=== PATIENT | male | born 1955 | race Caucasian/White ===

== ENCOUNTER 2018-07-18 17:41 | Emergency (ER) | payer MEDICARE ==
--- NOTE | 2018-07-18 17:49 | EDM.PDOC ---
ED HPI GENERAL MEDICAL PROBLEM - General Chief Complaint: General Stated Complaint: LIGHT HEADED Time Seen by Provider: 07/18/18 17:47 Source of Information: Reports: Patient History Limitations: Reports: Other (poor historian) - History of Present Illness INITIAL COMMENTS - FREE TEXT/NARRATIVE: HISTORY AND PHYSICAL: History of present illness: Patient is a 63-year-old male who presents to the clinic today with concerns of wanting his blood pressure medications refilled until his appointment on July [address] Garcia at [facility]. Patient states that he decided he needed his medications (as he has been out for 5 or 6 days) and is now experiencing lightheadedness, shortness of breath, cough, and had an episode where he "blacked out" yesterday. Patient states he was in the kitchen when he suddenly felt lightheaded and woke up on the floor. He states he is not sure how long he was unconscious but that he awoke to the dog was licking his face. Patient states he's never had an episode like this before. He recently moved back to [place] from [place] to be with this children is why he is waiting to get into the clinic at [facility]. Patient does state he was recently hospitalized in [place] on for "swelling of my legs" as well as "cough". Patient states he is not sure of any diagnosis he received while in the hospital. Patient does not live an active lifestyle and states that he does not walk around much. Patient states his only health history is as high blood pressure and he is not aware of any cardiovascular or respiratory concerns. Patient does smoke about half a pack a day for many years. Patient denies fever, chills, chest pain, palpitations, diaphoresis, pain that radiates down the arm, pain with inspiration, nausea, vomiting, diarrhea, constipation, or or any GI or symptoms. Review of systems: As per history of present illness and below otherwise all systems reviewed and negative. Past medical history: As per history of present illness and as reviewed below otherwise noncontributory. Surgical history: As per history of present illness and as reviewed below otherwise noncontributory. Social history: See social history for further information Family history: As per history of present illness and as reviewed below otherwise noncontributory. Physical exam: Exam is limited due to body habitus General: Patient is alert, oriented, and in no acute distress. He is sitting comfortably on exam table. HEENT: Atraumatic, normocephalic, pupils equal and reactive bilaterally, negative for conjunctival pallor or scleral icterus, mucous membranes dry, TMs normal bilaterally, throat clear, neck supple, nontender, trachea midline. No drooling or trismus noted. No meningeal signs. No hot potato voice noted. Lungs: Diffuse wheezing heard bilaterally, breath sounds equal bilaterally but greatly diminished , chest nontender. Heart: S1S2, regular rate and rhythm without overt murmur Abdomen: Morbid obesity but otherwise soft, nondistended, nontender. Negative for masses or hepatosplenomegaly. Negative for costovertebral tenderness. Pelvis: Stable nontender. Genitourinary: Deferred. Rectal: Deferred. Skin: Intact, warm, dry. No lesions or rashes noted. Extremities: the skin on patient's legs are taught with 1+ pitting edema. Otherwise, atraumatic, negative for cords or calf pain. Neurovascular unremarkable. Neuro: Awake, alert, oriented. Cranial nerves II through XII unremarkable. Cerebellum unremarkable. Motor and sensory unremarkable throughout. Exam nonfocal. Notes: Patient continues to have multiple vague complaints the more we talked about his diagnostic workup. After nursing staff established an IV and was preparing to administer medication he states that he has already taken aspirin prior to arrival and declines. He states he does have some chest pain and is requesting soda as he states that he "needs to burp". We did allow him to drink some Sprite at the bedside which she was able to relieve pressure and states that he no longer has chest pain. He declines the nitroglycerin sublingual that was offered and as his pain is now a 0 out of 10. He does state he has anxiety and is anxious about being here in the emergency room. Patient requested to speak with the provider, stating he would like to leave and "just have my medications refilled". Initially we had discussed possible admission due to his multiple complaints, at this time he is declining. He is requesting that whatever tests have not been completed to be canceled at this time. He states his significant other did make him a follow-up appointment with Dr. Garcia at [facility]. We discussed possible risks of being discharged without a all our testing results being returned and not being able to complete some of the tests that have yet been performed. He is aware of these risks and accepts responsibility in still like to be discharged. He is requesting that his medications be refilled until he can see Dr. Garcia. I will give him a 2 week supply until he is able to make this appointment. I encouraged him to return to the emergency room if his symptoms return, worsen or new symptoms develop. He is signing out AGAINST MEDICAL ADVICE with routine instructions. Diagnostics: CBC, CMP, EKG, Chest Xray, Troponin, BNP, Head CT, Orthostatic Vitals Therapeutics: Solu-Medrol, Duo Neb, ASA 81 X 4 Prescription: Lasix and metoprolol tartrate Impression: History of hypertension Encounter for medical screening Syncope Dyspnea Leaving AGAINST MEDICAL ADVICE Plan: 1. Continue with your home medications. 2. You can alternate Tylenol or ibuprofen as needed for pain or discomfort. 3. Follow-up with Dr. Garcia at [facility] as scheduled. 4. Return to the ED as needed and as discussed. Definitive disposition and diagnosis as appropriate pending reevaluation and review of above. Duration: Chronic - Related Data Allergies Allergy/AdvReac Type Severity Reaction Status Date / Time Penicillins Allergy Delusions Verified 07/18/18 17:47 Home Meds: Home Meds Albuterol [Proventil Neb Soln] 0.63 mg .XX ASDIRECTED PRN 07/18/18 [History] Furosemide [Lasix] 20 mg PO DAILY #15 tab 07/18/18 [Rx] Furosemide [Lasix] 40 mg PO DAILY 07/18/18 [History] Metoprolol Tartrate 25 mg PO BID 07/18/18 [History] Metoprolol Tartrate 25 mg PO BID 15 Days #30 tablet 07/18/18 [Rx] ED ROS GENERAL - Review of Systems Review Of Systems: ROS reveals no pertinent complaints other than HPI. ED EXAM, GENERAL - Physical Exam Exam: See Below (see dictation) Course - Vital Signs Last Recorded V/S: Last Vital Signs Temp 96.5 F 07/18/18 17:48 Pulse 110 H 07/18/18 17:48 Resp 26 H 07/18/18 17:48 BP 160/86 H 07/18/18 17:48 Pulse Ox 97 07/18/18 17:48 Orthostatic Blood Pressure [ 139/76 Standing] Orthostatic Blood Pressure [ 105/56 Sitting] Orthostatic Blood Pressure [ 112/68 Supine] - Orders/Labs/Meds Labs: Laboratory Tests 07/18/18 07/18/18 07/18/18 Range/Units 18:25 18:25 18:25 WBC 7.77 (4.0-11.0) K/uL RBC 4.40 L (4.50-5.90) M/uL Hgb 10.7 L (13.0-17.0) g/dL Hct 33.9 L (38.0-50.0) % MCV 77.0 L (80.0-98.0) fL MCH 24.3 L (27.0-32.0) pg MCHC 31.6 (31.0-37.0) g/dL RDW Std Deviation 45.0 (28.0-62.0) fl RDW Coeff of Diego 16 H (11.0-15.0) % Plt Count 332 (150-400) K/uL MPV 8.30 (7.40-12.00) fL Neut % (Auto) 67.5 (48.0-80.0) % Lymph % (Auto) 17.0 (16.0-40.0) % Boyle % (Auto) 10.8 (0.0-15.0) % Eos % (Auto) 4.4 (0.0-7.0) % Baso % (Auto) 0.3 (0.0-1.5) % Neut # (Auto) 5.3 (1.4-5.7) K/uL Lymph # (Auto) 1.3 (0.6-2.4) K/uL Boyle # (Auto) 0.8 (0.0-0.8) K/uL Eos # (Auto) 0.3 (0.0-0.7) K/uL Baso # (Auto) 0.0 (0.0-0.1) K/uL Nucleated RBC % 0.0 /100WBC Nucleated RBCs # 0 K/uL Sodium 132 L (136-148) mmol/L Potassium 5.5 H (3.5-5.1) mmol/L Chloride 97 L (98-107) mmol/L Carbon Dioxide 25.4 (21.0-32.0) mmol/L BUN 16 (7.0-18.0) mg/dL Creatinine 1.3 (0.8-1.3) mg/dL Est Cr Clr Drug Dosing 64.67 mL/min Estimated GFR (MDRD) 55.9 ml/min Glucose 108 H (74-106) mg/dL Calcium 9.2 (8.5-10.1) mg/dL Total Bilirubin 0.3 (0.2-1.0) mg/dL AST 24 (15-37) IU/L ALT 24 (14-63) IU/L Alkaline Phosphatase 61 (46-116) U/L Troponin I < 0.050 (0.000-0.056) ng/mL B-Natriuretic Peptide 15 (<100) PG/ML Total Protein 8.1 (6.4-8.2) g/dL Albumin 3.3 L (3.4-5.0) g/dL Globulin 4.8 H (2.6-4.0) g/dL Albumin/Globulin Ratio 0.7 L (0.9-1.6) Meds: Medications Discontinued Medications Generic Name Dose Route Start Last Admin Trade Name Freq PRN Reason Stop Dose Admin Albuterol/Ipratropium 3 ml 07/18/18 18:05 07/18/18 18:16 Duoneb 3.0-0.5 Mg/3 Ml NEB 07/18/18 18:06 3 ml ONETIME ONE Administration Aspirin 324 mg 07/18/18 18:23 07/18/18 18:38 Aspirin PO 07/18/18 18:24 Not Given ONETIME ONE Methylprednisolone Sodium Succinate 125 mg 07/18/18 18:05 07/18/18 18:32 Solu-Medrol IVPUSH 07/18/18 18:06 125 mg ONETIME ONE Administration Nitroglycerin 0.4 mg 07/18/18 18:32 Nitrostat SL Q5M PRN Chest Pain Sodium Chloride 10 ml 07/18/18 18:04 07/18/18 18:32 Saline Flush FLUSH 10 ml ASDIRECTED PRN Administration Keep Vein Open Sodium Chloride 2.5 ml 07/18/18 18:04 07/18/18 18:31 Saline Flush FLUSH 2.5 ml ASDIRECTED PRN Administration Keep Vein Open Departure - Departure Time of Disposition: 19:06 Disposition: Home, Self-Care 01 Clinical Impression: Medication refill, Eloped from emergency department, History of hypertension Dyspnea Qualifiers: Dyspnea type: unspecified Qualified Code(s): R06.00 - Dyspnea, unspecified - Discharge Information Prescriptions: Furosemide [Lasix] 20 mg PO DAILY #15 tab Metoprolol Tartrate 25 mg PO BID 15 Days #30 tablet Referrals: PCP,None [Primary Care Provider] - Forms: ED Department Discharge Additional Instructions: The following information is given to patients seen in the emergency department who are being discharged to home. This information is to outline your options for follow-up care. We provide all patients seen in our emergency department with a follow-up referral. The need for follow-up, as well as the timing and circumstances, are variable depending upon the specifics of your emergency department visit. If you don't have a primary care physician on staff, we will provide you with a referral. We always advise you to contact your personal physician following an emergency department visit to inform them of the circumstance of the visit and for follow-up with them and/or the need for any referrals to a consulting specialist. The emergency department will also refer you to a specialist when appropriate. This referral assures that you have the opportunity for follow-up care with a specialist. All of these measure are taken in an effort to provide you with optimal care, which includes your follow-up. Under all circumstances we always encourage you to contact your private physician who remains a resource for coordinating your care. When calling for follow-up care, please make the office aware that this follow-up is from your recent emergency room visit. If for any reason you are refused follow-up, please contact the [facility] Emergency Department at and asked to speak to the emergency department charge nurse. [facility] [address] [place] [address] [id number] [address] [address] 1. Continue with your home medications. 2. You can alternate Tylenol or ibuprofen as needed for pain or discomfort. 3. Follow-up with Dr. Garcia at [facility] as scheduled. 4. Return to the ED as needed and as discussed.
[2018-07-18] MEDS ORDERED: Sodium Chloride 0.9% 10 ML Syringe FLUSH PRN (18:04)
[2018-07-18] MEDS ORDERED: Sodium Chloride 0.9% 2.5 ML Syringe FLUSH PRN (18:04)
[2018-07-18] MEDS ORDERED: methylPREDNISolone Sodium Succinate 125 MG/2 ML SDV IVPUSH ONE (18:05)
[2018-07-18] MEDS ORDERED: Albuterol/Ipratropium 3.0-0.5 MG/3 ML Neb Soln NEB ONE (18:05)
[2018-07-18] MEDS ORDERED: Aspirin 81 MG Tab.Chew PO ONE (18:23)
[2018-07-18] MEDS ORDERED: Nitroglycerin 0.4 MG Tab.SL SL PRN (18:32)
[2018-07-18 19:07] LABS: CHLORIDE,CL 97 mmol/L (98-107); SODIUM,NA 132 mmol/L (136-148)
== END 2018-07-18 19:17 | disposition home or self-care (01) ==
LOC: MW.ED 17:41
DX: R55 Syncope and collapse (principal); R06.02 Shortness of breath; I10 Essential (primary) hypertension; E66.01 Morbid (severe) obesity due to excess calories; F17.210 Nicotine dependence, cigarettes, uncomplicated; Z88.0 Allergy status to penicillin; Z79.899 Other long term (current) drug therapy
CPT/HCPCS: 36415; 80053; 83880; 84484; 85025; 93005; 96374; 99285; J2930; J7620-GY

== ENCOUNTER 2018-08-03 13:43 | Emergency (ER) | payer MEDICARE ==
[2018-08-03] MEDS ORDERED: Albuterol/Ipratropium 3.0-0.5 MG/3 ML Neb Soln NEB ONE (14:14)
[2018-08-03] MEDS ORDERED: methylPREDNISolone Sodium Succinate 125 MG/2 ML SDV IM ONE (14:14)
--- NOTE | 2018-08-03 14:17 | EDM.PDOC ---
ED HPI GENERAL MEDICAL PROBLEM - General Chief Complaint: General Stated Complaint: FLU Time Seen by Provider: 08/03/18 14:07 Source of Information: Reports: Patient History Limitations: Reports: No Limitations - History of Present Illness INITIAL COMMENTS - FREE TEXT/NARRATIVE: HISTORY AND PHYSICAL: History of present illness: Patient is a 63-year-old male who presents to the emergency room with complaints of cough and generally feeling unwell. He states he was seen by his primary care provider, Dr. Rc Garcia approximately a week and a half ago and was diagnosed with pneumonia. He states he is placed on an antibiotic once daily for 7 days. Once the antibiotic was completed he states he started to feel unwell again. He continues to have a cough, fatigue and sore throat. Patient reports he has a past medical history of hypertension and anxiety. He denies any fever, chills, chest pain, abdominal pain, nausea, vomiting, diarrhea or constipation. He states his appetite has decreased due to the pain in his throat but is able to continue taking and warmed fluids. Review of systems: As per history of present illness and below otherwise all systems reviewed and negative. Past medical history: As per history of present illness and as reviewed below otherwise noncontributory. Surgical history: As per history of present illness and as reviewed below otherwise noncontributory. Social history: See social history for further information Family history: As per history of present illness and as reviewed below otherwise noncontributory. Physical exam: General: Well-developed and well-nourished 63-year-old male. Alert and oriented. Nontoxic appearing and in no acute distress. HEENT: Atraumatic, normocephalic, pupils equal and reactive bilaterally, negative for conjunctival pallor or scleral icterus, mucous membranes moist, TMs normal bilaterally, throat clear, neck supple, nontender, trachea midline. No drooling or trismus noted. No meningeal signs. No hot potato voice noted. Lungs: Expiratory wheezing throughout, diminished, dry cough noted, chest nontender. Heart: S1S2, regular rate and rhythm without overt murmur Abdomen: Soft, nondistended, obese, nontender. Negative for masses or hepatosplenomegaly. Negative for costovertebral tenderness. Pelvis: Stable nontender. Genitourinary: Deferred. Rectal: Deferred. Skin: Intact, warm, dry. No lesions or rashes noted. Extremities: Atraumatic, moves all per self, negative for cords or calf pain. Neurovascular unremarkable. Neuro: Awake, alert, oriented. Cranial nerves II through XII unremarkable. Cerebellum unremarkable. Motor and sensory unremarkable throughout. Exam nonfocal. Notes: Chest x-ray shows no acute findings. Influenza and strep screening are negative. Patient does have a slight decrease in hemoglobin. Discussed this findings as well as the rest of lab/imaging results with patient. He states he has known anemia and was encouraged to follow up with a research program intern in [place] but was noncompliant. He denies any blood in his stools. Discussed the need to follow up with his primary care provider or general surgeon for further evaluation. We did discuss outpatient supportive care measures. He states he does have an inhaler but does not take it as directed because it "tasted bad". I encouraged him to take this as directed, this should also help with his coughing. Reassessed vitals and patient's pulse to come down 106. He is anxious appearing and bouncing his knees up and down. He does express feeling anxiety and has a history of this. Supportive care measures were reviewed and discussed. Voices understanding and is agreeable to plan of care. Denies any further questions or concerns at this time. Diagnostics: CBC, CMP, troponin, EKG, 2 view chest, strep screening, influenza Therapeutics: Solu-Medrol, DuoNeb Prescription: Medrol Dosepak Impression: Anemia Cough Plan: 1. Take Tylenol and ibuprofen as directed and as discussed for pain and discomfort. Take medication as prescribed. 2. Follow-up with your primary care provider as discussed. 3. Return to the ED as needed as discussed. Definitive disposition and diagnosis as appropriate pending reevaluation and review of above. Throat Pain Score (Numeric/FACES): 10 - Related Data Allergies Allergy/AdvReac Type Severity Reaction Status Date / Time Penicillins Allergy Delusions Verified 08/03/18 14:10 Home Meds: Home Meds Losartan [Cozaar] 50 mg PO DAILY 08/03/18 [History] Past Medical History HEENT History: Reports: None Cardiovascular History: Reports: Hypertension Respiratory History: Reports: None Gastrointestinal History: Reports: None Genitourinary History: Reports: None Musculoskeletal History: Reports: None Neurological History: Reports: None Psychiatric History: Reports: Anxiety Endocrine/Metabolic History: Reports: None Dermatologic History: Reports: None - Infectious Disease History Infectious Disease History: Reports: None - Past Surgical History HEENT Surgical History: Reports: None Social & Family History - Family History Family Medical History: Noncontributory - Tobacco Use Smoking Status *Q: Current Every Day Smoker Years of Tobacco use: 30 Packs/Tins Daily: 1 - Caffeine Use Caffeine Use: Reports: Coffee - Recreational Drug Use Recreational Drug Use: No ED ROS GENERAL - Review of Systems Review Of Systems: ROS reveals no pertinent complaints other than HPI. ED EXAM, GENERAL - Physical Exam Exam: See Below (See dictation) Course - Vital Signs Last Recorded V/S: Last Vital Signs Temp 96.6 F 08/03/18 14:11 Pulse 120 H 08/03/18 14:11 Resp 16 08/03/18 14:11 BP 124/72 08/03/18 14:11 Pulse Ox 94 L 08/03/18 14:15 - Orders/Labs/Meds Orders: Active Orders 24 hr Category Date Time Status EKG Documentation Completion [RC] STAT Care 08/03/18 14:14 Active RT Aerosol Therapy [RC] ASDIRECTED Care 08/03/18 14:15 Active CULTURE STREP A CONFIRMATION [] Stat Lab 08/03/18 14:29 Results STREP SCRN A RAPID W CULT CONF [] Stat Lab 08/03/18 14:29 Results Labs: Laboratory Tests 08/03/18 08/03/18 Range/Units 14:28 14:28 WBC 9.79 (4.0-11.0) K/uL RBC 4.14 L (4.50-5.90) M/uL Hgb 9.9 L (13.0-17.0) g/dL Hct 31.2 L (38.0-50.0) % MCV 75.4 L (80.0-98.0) fL MCH 23.9 L (27.0-32.0) pg MCHC 31.7 (31.0-37.0) g/dL RDW Std Deviation 44.7 (28.0-62.0) fl RDW Coeff of Diego 16 H (11.0-15.0) % Plt Count 384 (150-400) K/uL MPV 8.30 (7.40-12.00) fL Neut % (Auto) 75.8 (48.0-80.0) % Lymph % (Auto) 11.1 L (16.0-40.0) % [place] % (Auto) 9.5 (0.0-15.0) % Eos % (Auto) 3.3 (0.0-7.0) % Baso % (Auto) 0.3 (0.0-1.5) % Neut # (Auto) 7.4 H (1.4-5.7) K/uL Lymph # (Auto) 1.1 (0.6-2.4) K/uL [place] # (Auto) 0.9 H (0.0-0.8) K/uL Eos # (Auto) 0.3 (0.0-0.7) K/uL Baso # (Auto) 0.0 (0.0-0.1) K/uL Nucleated RBC % 0.0 /100WBC Nucleated RBCs # 0 K/uL Sodium 132 L (136-148) mmol/L Potassium 4.4 (3.5-5.1) mmol/L Chloride 97 L (98-107) mmol/L Carbon Dioxide 27.8 (21.0-32.0) mmol/L BUN 15 (7.0-18.0) mg/dL Creatinine 1.6 H (0.8-1.3) mg/dL Est Cr Clr Drug Dosing 50.98 mL/min Estimated GFR (MDRD) 44.0 ml/min Glucose 147 H (74-106) mg/dL Calcium 8.8 (8.5-10.1) mg/dL Total Bilirubin 0.3 (0.2-1.0) mg/dL AST 26 (15-37) IU/L ALT 14 (14-63) IU/L Alkaline Phosphatase 54 (46-116) U/L Troponin I < 0.050 (0.000-0.056) ng/mL Total Protein 7.7 (6.4-8.2) g/dL Albumin 2.9 L (3.4-5.0) g/dL Globulin 4.8 H (2.6-4.0) g/dL Albumin/Globulin Ratio 0.6 L (0.9-1.6) Meds: Medications Discontinued Medications Generic Name Dose Route Start Last Admin Trade Name Freq PRN Reason Stop Dose Admin Albuterol/Ipratropium 3 ml 08/03/18 14:14 08/03/18 14:19 Duoneb 3.0-0.5 Mg/3 Ml NEB 08/03/18 14:15 3 ml ONETIME ONE Administration Methylprednisolone Sodium Succinate 125 mg 08/03/18 14:14 08/03/18 15:10 Solu-Medrol IM 08/03/18 14:15 125 mg ONETIME ONE Administration Departure - Departure Time of Disposition: 15:32 Disposition: Home, Self-Care 01 Clinical Impression: Cough in adult Anemia Qualifiers: Anemia type: unspecified type Qualified Code(s): D64.9 - Anemia, unspecified - Discharge Information Instructions: Anemia, Cough, Adult Referrals: PCP,Unknown [Primary Care Provider] - Forms: ED Department Discharge Additional Instructions: The following information is given to patients seen in the emergency department who are being discharged to home. This information is to outline your options for follow-up care. We provide all patients seen in our emergency department with a follow-up referral. The need for follow-up, as well as the timing and circumstances, are variable depending upon the specifics of your emergency department visit. If you don't have a primary care physician on staff, we will provide you with a referral. We always advise you to contact your personal physician following an emergency department visit to inform them of the circumstance of the visit and for follow-up with them and/or the need for any referrals to a consulting specialist. The emergency department will also refer you to a specialist when appropriate. This referral assures that you have the opportunity for follow-up care with a specialist. All of these measure are taken in an effort to provide you with optimal care, which includes your follow-up. Under all circumstances we always encourage you to contact your private physician who remains a resource for coordinating your care. When calling for follow-up care, please make the office aware that this follow-up is from your recent emergency room visit. If for any reason you are refused follow-up, please contact the [facility] Emergency Department at and asked to speak to the emergency department charge nurse. [facility] [address] [place] [id number] [facility] [address] [place] [id number] 1. Take Tylenol and ibuprofen as directed and as discussed for pain and discomfort. Take medication as prescribed. 2. Follow-up with your primary care provider as discussed. 3. Return to the ED as needed as discussed. - My Orders Last 24 Hours: My Active Orders 08/03/18 14:14 EKG Documentation Completion [RC] STAT 08/03/18 14:15 RT Aerosol Therapy [RC] ASDIRECTED 08/03/18 14:29 CULTURE STREP A CONFIRMATION [RM] Stat STREP SCRN A RAPID W CULT CONF [RM] Stat - Assessment/Plan Last 24 Hours: My Active Orders 08/03/18 14:14 EKG Documentation Completion [RC] STAT 08/03/18 14:15 RT Aerosol Therapy [RC] ASDIRECTED 08/03/18 14:29 CULTURE STREP A CONFIRMATION [RM] Stat STREP SCRN A RAPID W CULT CONF [RM] Stat
--- NOTE | 2018-08-03 15:10 | CR ---
EXAMINATION: Two-view chest (PA and Lateral views). HISTORY: Cough. FINDINGS: The trachea is midline. The cardiomediastinal silhouette is within normal limits. No pulmonary infiltrates, effusions or pneumothorax. Osseous structures appear unremarkable. IMPRESSION: No acute cardiopulmonary process.
[2018-08-03 15:20] LABS: CHLORIDE,CL 97 mmol/L (98-107); SODIUM,NA 132 mmol/L (136-148)
== END 2018-08-03 15:51 | disposition home or self-care (01) ==
LOC: MW.ED 13:43
DX: R05 Cough (principal); D64.9 Anemia, unspecified; Z88.0 Allergy status to penicillin; I10 Essential (primary) hypertension; Z79.899 Other long term (current) drug therapy; F17.210 Nicotine dependence, cigarettes, uncomplicated
CPT/HCPCS: 36415; 71046; 80053; 84484; 85025; 87081; 87804; 87880; 93005; 94640; 96372; 99284; J2930; 99283; J7620-GY